=== PATIENT | female | born 1995 ===

== ENCOUNTER 2017-05-22 00:57 | Emergency (ER) | payer BC ==
[~2017-05-22] VITALS: Ht 180.3 cm; Wt 67.1 kg
--- NOTE | 2017-05-22 01:25 | NUR ---
Pt states she has been feeling "sick" most of this month. c/o CLAROS and productive cough, started 2 days ago, w/slight dizziness and SOB. LS clear and = but diminished. Pt denies CP, n/v, no other complaints, minor distress noted.
[2017-05-22] MEDS ORDERED: IPRATROPIUM BROMIDE 0.5 MG/2.5 ML NEBU NEB ONE (02:00)
[2017-05-22] MEDS ORDERED: predniSONE 20 MG TABLET PO ONE (02:00)
[2017-05-22] MEDS ORDERED: ALBUTEROL SULFATE 2.5 MG/3 ML NEBU NEB ONE (02:00)
[2017-05-22] MEDS ORDERED: ALBUTEROL SULFATE 2.5 MG/3 ML NEBU ONE (02:16)
[2017-05-22] MEDS ORDERED: IPRATROPIUM BROMIDE 0.5 MG/2.5 ML NEBU ONE (02:16)
[2017-05-22] MEDS ORDERED: predniSONE 20 MG TABLET ONE (02:31)
--- NOTE | 2017-05-22 03:34 | NUR ---
Patient discharged to home in stable conditon. Written and verbal after care instructions given. Patient verbalizes understanding of instructions.
== END 2017-05-22 03:36 | disposition home or self-care (01) ==
LOC: ER 00:58
DX: J45.901 Unspecified asthma with (acute) exacerbation (principal); J02.9 Acute pharyngitis, unspecified; Z88.0 Allergy status to penicillin
CPT/HCPCS: 71045; A4663; J3590; J7512

== ENCOUNTER 2017-11-19 22:17 | Emergency (ER) | payer BC ==
[~2017-11-19] VITALS: Ht 177.8 cm; Wt 60.3 kg
[2017-11-19] MEDS ORDERED: LIDOCAINE VISCUS 2% 15 ML UDC ONE (23:28)
[2017-11-19] MEDS ORDERED: AZITHROMYCIN 250 MG TABLET ONE (23:30)
[2017-11-19] MEDS ORDERED: LIDOCAINE VISCUS 2% 15 ML UDC MM ONE (23:30)
[2017-11-19] MEDS ORDERED: AZITHROMYCIN 250 MG TABLET PO ONE (23:30)
--- NOTE | 2017-11-19 23:33 | NUR ---
DPatient discharged to home in stable conditon. Written and verbal after care instructions given. Patient verbalizes understanding of instructions.
[2017-11-19 23:36] VITALS: BP 117/74
== END 2017-11-19 23:37 | disposition home or self-care (01) ==
LOC: ER 22:18
DX: S01.511A Laceration without foreign body of lip, initial encounter (principal); J45.909 Unspecified asthma, uncomplicated; Z87.892 Personal history of anaphylaxis; Z88.0 Allergy status to penicillin; W54.0XXA Bitten by dog, initial encounter; Y93.89 Activity, other specified; Y92.89 Other specified places as the place of occurrence of the external cause; Y99.8 Other external cause status
CPT/HCPCS: A4663; Q0144

== ENCOUNTER 2022-11-27 01:53 | Emergency (ER) | payer BC ==
[2022-11-27] MEDS ORDERED: KETO10TA2 PO (17:28)
== END 2022-11-27 02:04 | disposition left against medical advice (07) ==
LOC: ER 02:04
DX: Z53.21 Procedure and treatment not carried out due to patient leaving prior to being seen by health care provider (principal)

== ENCOUNTER 2022-11-27 15:38 | Emergency (ER) | payer SELFPAY ==
[~2022-11-27] VITALS: Ht 177.8 cm; Wt 63.5 kg
[2022-11-27] MEDS ORDERED: diphenhydrAMINE 50 MG/1 ML VIAL IV ONE (16:00)
[2022-11-27] MEDS ORDERED: PROCHLORPERAZINE EDISYLATE 10 MG/2 ML VIAL IV ONE (16:00)
[2022-11-27] MEDS ORDERED: IV NORMAL SALINE 1000 ML BAG IV ONE (16:00)
[2022-11-27 16:13] LABS: *URINE HCG, QUAL NEGATIVE (NEGATIVE)
[2022-11-27] MEDS ORDERED: PROCHLORPERAZINE EDISYLATE 10 MG/2 ML VIAL ONE (16:20)
[2022-11-27] MEDS ORDERED: diphenhydrAMINE 50 MG/1 ML VIAL ONE (16:20)
[2022-11-27] MEDS ORDERED: KETOROLAC TROMETHAMINE 30 MG INJ IVP ONE (16:30)
[2022-11-27] MEDS ORDERED: KETOROLAC TROMETHAMINE 30 MG INJ ONE (16:35)
[2022-11-27] MEDS ORDERED: KETO10TA2 PO (17:28)
[2022-11-27 17:54] VITALS: BP 112/68; TEMP 97.6
== END 2022-11-27 17:30 | disposition home or self-care (01) ==
LOC: ER 15:40
DX: G43.909 Migraine, unspecified, not intractable, without status migrainosus (principal); J45.909 Unspecified asthma, uncomplicated; Z88.0 Allergy status to penicillin; Z79.899 Other long term (current) drug therapy
CPT/HCPCS: 99283; 96374; 96361; 84703; J1200; J1885; J0780; A4663